=== PATIENT | female | born 1990 | race Native Hawaiian/Other Pacific Islander ===

== ENCOUNTER 2020-09-04 16:31 | Outpatient (CLI) | payer OTHER | END 2020-09-04 21:39 | disposition home or self-care (01) | LOC: RAD 16:31 | PROVIDERS: ATTEND Nurse Practitioner Family | DX: S89.91XA Unspecified injury of right lower leg, initial encounter (principal) ==

== ENCOUNTER 2020-09-21 09:22 | Outpatient (CLI) | payer OTHER | END 2020-09-21 21:49 | disposition home or self-care (01) | LOC: MRI 09:22 | PROVIDERS: ATTEND Nurse Practitioner Family | DX: S83.421A Sprain of lateral collateral ligament of right knee, initial encounter (principal) ==

== ENCOUNTER 2020-11-05 08:58 | Outpatient (CLI) | payer OTHER | END 2020-11-05 21:34 | disposition home or self-care (01) | LOC: RAD 08:58 → US 08:58 | PROVIDERS: ATTEND Nurse Practitioner Family | DX: R13.10 Dysphagia, unspecified (principal); N63.10 Unspecified lump in the right breast, unspecified quadrant | CPT/HCPCS: G0279 ==